=== PATIENT | female | born 1995 | race Caucasian/White ===

== ENCOUNTER → 2020-11-12 | Outpatient (CLI) | payer OTHER ==
[2020-11-12 13:56] LABS: HEMATOCRIT 36.7 % (36.0-47.0); HEMOGLOBIN 12.4 g/dl (12.0-15.5); MEAN CORPUSCULAR HEMOGLOBIN 30.2 pg (27.0-33.0); MEAN CORPUSCULAR HGB CONC 33.8 g/dl (32.0-36.5); MEAN CORPUSCULAR VOLUME 89.3 fl (80.0-96.0); PLATELET COUNT, AUTOMATED 161 10^3/uL (150-450); RED BLOOD COUNT 4.11 10^6/uL (4.00-5.40); WHITE BLOOD COUNT 5.2 10^3/uL (4.0-10.0)
[2020-11-12 14:40] LABS: FREE T4 0.92 NG/DL (0.76-1.46); THYROID STIMULATING HORMONE 1.86 uIU/ML (0.358-3.740)
== END ==
LOC: M PLALAB 10:18
PROVIDERS: ATTEND Psychiatry & Neurology Psychiatry
DX: F41.1 Generalized anxiety disorder (principal)

== ENCOUNTER 2021-05-29 20:01 | Emergency (ER) | payer OTHER ==
[~2021-05-29] VITALS: Ht 149.9 cm; Wt 58.6 kg
[2021-05-29 21:04] LABS: BASO % 0.3 % (0.0-1.0); EOS # 0.1 10^3/uL (0.0-0.5); EOS % 1.6 % (0.0-3.0); HEMATOCRIT 41.2 % (36.0-47.0); HEMOGLOBIN 14.1 g/dl (12.0-15.5); LYMPH # 0.8 10^3/uL (1.5-5.0); LYMPH % 13.9 % (24.0-44.0); MEAN CORPUSCULAR HEMOGLOBIN 29.6 pg (27.0-33.0); MEAN CORPUSCULAR HGB CONC 34.2 g/dl (32.0-36.5); MEAN CORPUSCULAR VOLUME 86.4 fl (80.0-96.0); MONO # 0.5 10^3/uL (0.0-0.8); MONO % 7.8 % (2.0-8.0); NEUTROPHILS # 4.4 10^3/uL (1.5-8.5); NEUTROPHILS % 75.9 % (36.0-66.0); PLATELET COUNT, AUTOMATED 175 10^3/uL (150-450); RED BLOOD COUNT 4.77 10^6/uL (4.00-5.40); WHITE BLOOD COUNT 5.8 10^3/uL (4.0-10.0)
[2021-05-29 21:27] LABS: ALBUMIN 4.2 GM/DL (3.2-5.2); ALT/SGPT 25 U/L (12-78); BILIRUBIN,DIRECT 0.1 MG/DL (0.0-0.2); BILIRUBIN,TOTAL 0.5 MG/DL (0.2-1.0); BLOOD UREA NITROGEN 19 MG/DL (7-18); CALCIUM LEVEL 9.4 MG/DL (8.5-10.1); CARBON DIOXIDE LEVEL 26 MEQ/L (21-32); CHLORIDE LEVEL 104 MEQ/L (98-107); CREATININE FOR GFR 0.79 MG/DL (0.55-1.30); GLOMERULAR FILTRATION RATE > 60.0 (>60); GLUCOSE, FASTING 96 MG/DL (70-100); LIPASE 122 U/L (73-393); POTASSIUM SERUM 3.3 MEQ/L (3.5-5.1); SODIUM LEVEL 139 MEQ/L (136-145); TOTAL PROTEIN 7.9 GM/DL (6.4-8.2)
[2021-05-29] MEDS ORDERED: NS 1,000 ML IV ONE (22:50)
[2021-05-29] MEDS ORDERED: ONDANSETRON 4MG/2ML VIAL IV ONE (22:50)
[2021-05-29] MEDS ORDERED: KETOROLAC 30 MG/ML 1ML VIAL IV ONE (22:50)
[2021-05-29] MEDS ORDERED: ISOVUE-370 76% 100ML VIAL As Ordered ONE (23:27)
--- NOTE | 2021-05-30 00:45 | REPVR ---
PROCEDURE INFORMATION: Exam: CT Abdomen And Pelvis With Contrast Exam date and time: 05/29/2021 11:29 PM Age: 25 years old Clinical indication: Abdominal pain; Additional info: Rlq pain TECHNIQUE: Imaging protocol: Computed tomography of the abdomen and pelvis with contrast. Radiation optimization: All CT scans at this facility use at least one of these dose optimization techniques: automated exposure control; mA and/or kV adjustment per patient size (includes targeted exams where dose is matched to clinical indication); or iterative reconstruction. Contrast material: ISO 370; Contrast volume: 100 ml; Contrast route: INTRAVENOUS (IV); COMPARISON: No relevant prior studies available. FINDINGS: Liver: Hepatomegaly and steatosis. Gallbladder and bile ducts: Normal. No calcified stones. No ductal dilation. Pancreas: Normal. No ductal dilation. Spleen: Normal. No splenomegaly. Adrenal glands: Normal. No mass. Kidneys and ureters: Normal. No hydronephrosis. Stomach and bowel: Nonspecific bowel wall edema involving distal small bowel and colon. Under distension versus enterocolitis is considered. Appendix: No evidence of appendicitis. Intraperitoneal space: Trace free fluid in the pelvis. Vasculature: Unremarkable. No abdominal aortic aneurysm. Lymph nodes: Multiple borderline enlarged mesenteric lymph nodes. Urinary bladder: Unremarkable as visualized. Reproductive: Involuting possibly hemorrhagic left ovarian corpus luteal cyst. Bones/joints: Unremarkable. No acute fracture. Soft tissues: Mild diastasis of ventral periumbilical abdominal wall. IMPRESSION: Nonspecific bowel wall edema involving distal small bowel and colon. Under distension versus enterocolitis is considered. No bowel obstruction. Normal appendix. Involuting possibly hemorrhagic left ovarian corpus luteal cyst. Hepatomegaly and steatosis. Electronically signed by: José Tejeda On 05/30/2021 00:44:40 AM
[2021-05-30] MEDS ORDERED: KETO10TAB PO (00:51)
[2021-05-30] MEDS ORDERED: ONDA4TAB6 PO (00:51)
[2021-05-30 00:55] VITALS: BP 112/64
== END 2021-05-30 00:58 | disposition home or self-care (01) ==
LOC: M ED 20:01
DX: K52.9 Noninfective gastroenteritis and colitis, unspecified (principal); M54.9 Dorsalgia, unspecified; F12.10 Cannabis abuse, uncomplicated; R16.0 Hepatomegaly, not elsewhere classified; K76.0 Fatty (change of) liver, not elsewhere classified; Z88.1 Allergy status to other antibiotic agents
CPT/HCPCS: 74177; 80048; 80076; 81001; 83690; 84702; 85025; 96361; 96374; 96375; 99284; J1885; J2405; Q9967

== ENCOUNTER 2021-06-02 21:02 | Emergency (ER) | payer OTHER ==
[~2021-06-02] VITALS: Ht 149.9 cm; Wt 57.8 kg
[~2021-06-02 21:02] MED LIST: KETO10TAB PO; ONDA4TAB6 PO
[2021-06-03] MEDS ORDERED: ONDANSETRON 4MG/2ML VIAL IV ONE ×2 (00:55→05:20)
[2021-06-03] MEDS ORDERED: NS 1,000 ML IV ONE (00:55)
[2021-06-03] MEDS ORDERED: ISOVUE-370 76% 100ML VIAL As Ordered ONE (01:01)
[2021-06-03 01:35] LABS: HEMATOCRIT 36.6 % (36.0-47.0); HEMOGLOBIN 12.7 g/dl (12.0-15.5); MEAN CORPUSCULAR HEMOGLOBIN 29.5 pg (27.0-33.0); MEAN CORPUSCULAR HGB CONC 34.7 g/dl (32.0-36.5); MEAN CORPUSCULAR VOLUME 84.9 fl (80.0-96.0); PLATELET COUNT, AUTOMATED 178 10^3/uL (150-450); RED BLOOD COUNT 4.31 10^6/uL (4.00-5.40); WHITE BLOOD COUNT 3.6 10^3/uL (4.0-10.0)
[2021-06-03 02:01] LABS: ATYPICAL LYMPH 7 % (0-5); EOSINOPHILS 10 % (0-3); LYMPHOCYTES 48 % (16-44); MONOCYTES 5 % (0-5); NEUTROPHILS 30 % (28-66)
[2021-06-03 02:02] LABS: PLATELET ESTIMATE NORMAL (NORMAL)
[2021-06-03 02:03] LABS: ALBUMIN 3.7 GM/DL (3.2-5.2); BILIRUBIN,DIRECT 0.1 MG/DL (0.0-0.2); BILIRUBIN,TOTAL 0.5 MG/DL (0.2-1.0); TOTAL PROTEIN 6.9 GM/DL (6.4-8.2)
[2021-06-03 02:10] LABS: RSV AMPLIFICATION NEGATIVE (NEGATIVE)
--- NOTE | 2021-06-03 04:31 | REPVR ---
PROCEDURE INFORMATION: Exam: CT Abdomen And Pelvis With Contrast Exam date and time: 06/03/2021 12:55 AM Age: 25 years old Clinical indication: Nausea and vomiting; Additional info: Rlq pain TECHNIQUE: Imaging protocol: Computed tomography of the abdomen and pelvis with contrast. Radiation optimization: All CT scans at this facility use at least one of these dose optimization techniques: automated exposure control; mA and/or kV adjustment per patient size (includes targeted exams where dose is matched to clinical indication); or iterative reconstruction. Contrast material: ISO; Contrast volume: 100 ml; Contrast route: INTRAVENOUS (IV); COMPARISON: CT ABD/PEL W/IV CONTRAST ONLY 05/29/2021 11:26 PM FINDINGS: LUNG BASES: No infiltrate or effusion. VASCULAR: No abdominoaortic aneurysm, dissection, or retroperitoneal hematoma. A few splenic vein splenic hilar varicosities are noted. The portal vein is patent with a diameter of 16 mm. PERITONEAL : No free air. Trace amount of free fluid within the pelvis. GI: No hiatal hernia. The stomach contains some fluid and gas. The stomach is not sufficiently distended to evaluate wall thickening or for complete diagnostic evaluation by this exam. Mild gastritis cannot be excluded by this study. Clinical correlation with any symptoms. Non-specific fluid-filled loops of small bowel are seen. No significant asymmetric small-bowel distention to suggest a complete obstruction. There is mild mesenteric lymphadenopathy with lymph nodes measuring up to 10 mm in short axis. These are slightly larger than on the prior study. Differential would include mesenteric adenitis or reactive lymph nodes secondary to mild gastroenteritis. No focal mesenteric inflammatory stranding is seen. There is fluid within portions of the colon and rectum. This is abnormal and could be correlated with symptoms and causes of diarrhea. There is elevated distal pericolonic and perirectal vascularity, mild distal colonic and rectal wall thickening and mucosal enhancement. Findings are consistent with proctocolitis beginning at least at the splenic flexure, if not more proximal. No evidence of acute diverticulitis. The appendix does not appear inflamed. HEPATOBILIARY, PANCREAS, SPLEEN: Hepatic length is 16 cm. Hepatic attenuation is consistent with mild steatosis. No calcified gallstones or biliary dilation. No pancreatic inflammation. Spleen not enlarged. ADRENALS, KIDNEYS, BLADDER, RETROPERITONEAL: Adrenals within normal limits. No hydronephrosis. Symmetric renal enhancement. No perinephric stranding or fluid. The urinary bladder appears slightly thick-walled, however this may be artifactual secondary to insufficient distention. No perivesical stranding is seen. PELVIC: No dominant cystic pelvic mass seen. Anteverted uterus. Gas and debris within the vagina, may be within a tampon. MUSCULOSKELETAL: Fat containing umbilical hernia. Mild posterior disc displacement at the L5/S1 level. IMPRESSION: There is fluid within the colon and rectum. This is abnormal and could be correlated with symptoms and causes of diarrhea. There is mild distal proctocolitis. There are enlarging mesenteric lymph nodes which may be reactive and/or related to mesenteric adenitis. Collectively, clinical correlation for inflammatory bowel disease. Gastrointestinal findings discussed above in further detail. Trace amount of free fluid within the peritoneal cavity. Other incidental findings discussed above. Electronically signed by: Patricio Ramirez On 06/03/2021 04:31:29 AM
[2021-06-03] MEDS ORDERED: methylPREDNISolone 125MG 2ML VIAL IV ONE (05:05)
[2021-06-03] MEDS ORDERED: PRED20TA PO (05:09)
[2021-06-03] MEDS ORDERED: ONDA4TAB6 PO (05:09)
[2021-06-03 05:33] VITALS: BP 116/78
== END 2021-06-03 05:41 | disposition home or self-care (01) ==
LOC: M ED 21:02
DX: K63.9 Disease of intestine, unspecified (principal); M54.9 Dorsalgia, unspecified; F12.10 Cannabis abuse, uncomplicated; R59.9 Enlarged lymph nodes, unspecified; Z88.1 Allergy status to other antibiotic agents
CPT/HCPCS: 74177; 80047; 80076; 81001; 83605; 83690; 84702; 85025; 87631; 96361; 96374; 96375; 99284; J2405; J2930; Q9967

== ENCOUNTER → 2021-06-13 | Outpatient (REF) | payer OTHER ==
[~2021-06-13] MED LIST changes: +PRED20TA PO
[2021-06-13 16:22] LABS: BASO # 0.1 10^3/uL (0.0-0.2); BASO % 0.9 % (0.0-1.0); EOS # 0.2 10^3/uL (0.0-0.5); EOS % 3.3 % (0.0-3.0); HEMATOCRIT 39.2 % (36.0-47.0); LYMPH # 2.3 10^3/uL (1.5-5.0); LYMPH % 33.6 % (24.0-44.0); MEAN CORPUSCULAR HEMOGLOBIN 29.3 pg (27.0-33.0); MEAN CORPUSCULAR HGB CONC 33.2 g/dl (32.0-36.5); MEAN CORPUSCULAR VOLUME 88.5 fl (80.0-96.0); MONO # 0.4 10^3/uL (0.0-0.8); MONO % 6.2 % (2.0-8.0); NEUTROPHILS # 3.8 10^3/uL (1.5-8.5); NEUTROPHILS % 55.4 % (36.0-66.0); PLATELET COUNT, AUTOMATED 173 10^3/uL (150-450); RED BLOOD COUNT 4.43 10^6/uL (4.00-5.40); WHITE BLOOD COUNT 6.9 10^3/uL (4.0-10.0)
[2021-06-13 16:59] LABS: ALBUMIN 3.9 GM/DL (3.2-5.2); ALT/SGPT 96 U/L (12-78); BILIRUBIN,TOTAL 0.2 MG/DL (0.2-1.0); BLOOD UREA NITROGEN 16 MG/DL (7-18); CALCIUM LEVEL 9.3 MG/DL (8.5-10.1); CARBON DIOXIDE LEVEL 28 MEQ/L (21-32); CHLORIDE LEVEL 105 MEQ/L (98-107); CREATININE FOR GFR 0.57 MG/DL (0.55-1.30); GLOMERULAR FILTRATION RATE > 60.0 (>60); GLUCOSE, FASTING 81 MG/DL (70-100); POTASSIUM SERUM 4.2 MEQ/L (3.5-5.1); SODIUM LEVEL 139 MEQ/L (136-145); TOTAL PROTEIN 7.1 GM/DL (6.4-8.2)
== END ==
LOC: M SFHCCAPE 11:43
PROVIDERS: ATTEND Physician Assistant
DX: K52.9 Noninfective gastroenteritis and colitis, unspecified (principal)

== ENCOUNTER → 2021-06-14 | Outpatient (REF) | payer OTHER | LOC: M SFHCCAPE 09:36 | PROVIDERS: ATTEND Physician Assistant | DX: K52.9 Noninfective gastroenteritis and colitis, unspecified (principal) ==